=== PATIENT | male | born 1950 | race Native Hawaiian/Other Pacific Islander ===

== ENCOUNTER 2018-06-01 07:04 | Day surgery (SDC) | payer MEDICARE, OTHER ==
[2018-06-01] MEDS ORDERED: LACTATED RINGERS 1,000 ML IV ONE (07:34)
[2018-06-01] MEDS ORDERED: LIDO GARGLE 30 ML BOTTLE ONE (09:09)
[2018-06-01] MEDS ORDERED: fentaNYL 100 MCG/2 ML VIAL IVP ONE (09:18)
[2018-06-01] MEDS ORDERED: MIDAZOLAM 2 MG/2 ML VIAL IVP ONE (09:18)
[2018-06-01] MEDS ORDERED: LIDO GARGLE 30 ML BOTTLE PO ONE (09:30)
[2018-06-01 10:11] VITALS: BP 123/82
== END 2018-06-01 07:05 | disposition home or self-care (01) ==
LOC: SDS 07:04
PROVIDERS: ATTEND Surgery
PROC: 0DJ08ZZ Inspection of Upper Intestinal Tract, Via Natural or Artificial Opening Endoscopic (ICD-10-PCS; principal; 2018-06-01 09:15)
DX: R10.13 Epigastric pain (principal); I10 Essential (primary) hypertension
CPT/HCPCS: 43235; A9270; J7120

== ENCOUNTER 2019-01-07 08:37 | Outpatient (CLI) | payer MEDICARE, OTHER | END 2019-01-07 08:38 | disposition short-term general hospital (02) | LOC: EMS 08:37 | PROVIDERS: ATTEND Surgery | DX: R09.89 Other specified symptoms and signs involving the circulatory and respiratory systems (principal) | CPT/HCPCS: A0425; A0429 ==

== ENCOUNTER 2019-02-22 15:26 | Outpatient (CLI) | payer MEDICARE, OTHER | END 2019-02-22 15:27 | disposition home or self-care (01) | LOC: LC 15:26 | PROVIDERS: ATTEND Internal Medicine Cardiovascular Disease | DX: Z53.9 Procedure and treatment not carried out, unspecified reason (principal) | CPT/HCPCS: 36415; 71046; 80053; 83690; 83880; 84484; 85025; 85610; 85730; 93005 ==

== ENCOUNTER 2019-02-22 15:40 | Emergency (ER) | payer MEDICARE, OTHER ==
--- NOTE | 2019-02-22 15:53 | ED Physician Documentation ---
History of Present Illness - Stated complaint Stated Complaint: CP - History obtained from History obtained from: Patient - History of Present Illness Timing: Prior to arrival - Additonal information Additional information: Patient is a 68-year-old male with a history of hypertension who suffered from a STEMI in December 2017 and subsequently received multiple coronary stents presenting from cardiac rehab center with concern for elevated heart rate. Patient started cardiac rehab last week and has been going 3 times weekly. Cardiac rehab nurse at bedside and able to report that he is to only elevate his heart rate to the 120s, but today, he was pushed further and elevated his heart rate much higher than that and there was a concern for possible SVT and EKG changes. Patient himself denies any complaints and remains asymptomatic. No chest pain, GERD- like discomfort, shortness of breath, pleuritic chest pain, productive cough, fever, abdominal pain, urinary changes, stool changes, leg swelling or pain, lightheadedness, dizziness, syncope. Patient's STEMI was initially felt as GERD-like symptoms to him. Patient received all cardiac work-up at [facility].Patient is anticoagulated with Plavix and aspirin and compliant with all medications. No other improving or worsening factors noted. Review of Systems Constitutional: denies: Fever Cardiac: denies: Chest pain / pressure, Pedal edema, Calf pain Respiratory: denies: Dyspnea, Cough GI: denies: Abdominal Pain, Nausea, Vomiting, Diarrhea : denies: Dysuria Neurologic: denies: Generalized weakness, Focal weakness PD PAST MEDICAL HISTORY - Past Medical History Cardiovascular: Hypertension Respiratory: None Endocrine/Autoimmune: None GI: None : None Psych: None Musculoskeletal: None Derm: Other - Past Surgical History General: Colonoscopy, Other Cardiovascular: Coronary stent - Present Medications Home Medications: Ambulatory Orders Medication Instructions Recorded Confirmed Omeprazole 1 DAILY 06/01/18 - Allergies Allergies/Adverse Reactions: Allergies Allergy/AdvReac Type Severity Reaction Status Date / Time No Known Drug Allergies Allergy Verified 02/22/19 16:02 PD ED PE NORMAL - Vitals Vital signs reviewed: Yes - General General: Alert and oriented X 3, No acute distress, Well developed/nourished - HEENT HEENT: Atraumatic, Moist mucous membranes - Neck Neck: Supple, no meningeal sign - Cardiac Cardiac: RRR, No murmur - Respiratory Respiratory: No respiratory distress, Clear bilaterally - Abdomen Abdomen: Soft, Non tender, Non distended - Derm Derm: Normal color, Warm and dry, No rash - Extremities Extremities: No deformity, No tenderness to palpate, No edema - Neuro Neuro: Alert and oriented X 3, No motor deficit, No sensory deficit - Psych Psych: Normal mood, Normal affect Results - Vitals Vitals: Vital Signs - 24 hr 02/22/19 15:50 Temperature 36.9 C Heart Rate 69 Respiratory 23 Rate Blood Pressure 145/89 H O2 Saturation 100 Oxygen O2 Source Room air - EKG (time done) 1546 Rate: Rate (enter#) (67) Rhythm: NSR Ischemia: Non specific changes - Labs Labs: Laboratory Tests 02/22/19 02/22/19 02/22/19 16:20 16:20 16:20 WBC 4.2 L RBC 4.31 L Hgb 13.7 L Hct 41.3 L MCV 95.8 H MCH 31.8 H MCHC 33.2 RDW 12.7 Plt Count 221 MPV 9.2 Neut # (Auto) 2.1 Lymph # (Auto) 1.4 L [place] # (Auto) 0.6 Eos # (Auto) 0.1 Baso # (Auto) 0.0 Absolute Nucleated RBC 0.00 Nucleated RBC % 0.0 PT 12.1 INR 1.1 APTT 33.1 Sodium 138 Potassium 4.4 Chloride 102 Carbon Dioxide 24 Anion Gap 12.0 BUN 21 H Creatinine 1.0 Estimated GFR (MDRD) 75 L Glucose 84 Calcium 9.4 Total Bilirubin 0.8 AST 23 ALT 16 Alkaline Phosphatase 37 L Troponin I High Sens B-Natriuretic Peptide Total Protein 7.8 Albumin 4.6 Globulin 3.2 Albumin/Globulin Ratio 1.4 Lipase 46 02/22/19 02/22/19 16:20 16:20 WBC RBC Hgb Hct MCV MCH MCHC RDW Plt Count MPV Neut # (Auto) Lymph # (Auto) [place] # (Auto) Eos # (Auto) Baso # (Auto) Absolute Nucleated RBC Nucleated RBC % PT INR APTT Sodium Potassium Chloride Carbon Dioxide Anion Gap BUN Creatinine Estimated GFR (MDRD) Glucose Calcium Total Bilirubin AST ALT Alkaline Phosphatase Troponin I High Sens 8.2 B-Natriuretic Peptide 150 H Total Protein Albumin Globulin Albumin/Globulin Ratio Lipase PD MEDICAL DECISION MAKING - ED course Complexity details: reviewed old records, reviewed results, re-evaluated patient, considered differential, d/w patient, d/w software sales consultant ED course: Patient presenting from cardiac rehab with concerns by cardiac nursing for elevated heart rate possible EKG changes. Patient himself remains asymptomatic and without complaint. Patient received aspirin in ED, but did not require other medications. Chest x-ray, EKG, and screening lab work including troponin all returned relatively unremarkable. Again, patient remained a symptomatic. Spoke with cardiology at [facility] who plans to contact patient tomorrow but otherwise feels that he is safe to discharge home. Advised patient of results and recommendations, strict return precautions, appropriate follow-up. Patient voiced understanding and is comfortable with discharge plan. Departure - Departure Disposition: 01 Home, Self Care Clinical Impression: Arrhythmia Follow-Up: Cesar Morel MD [Primary Care Provider] - Within 3 Days Comments: Please continue all home medications as previously instructed. Cardiology will contact you tomorrow for follow-up. Also recommend close follow-up with your primary care physician in next 2 to 3 days and return to ED sooner if experience chest pain, difficulty breathing, palpitations, lightheadedness, passing out, acid reflux-like symptoms or other concerns.
[2019-02-22] MEDS ORDERED: ASPIRIN CHEW 81 MG TABLET PO STA (16:01)
--- NOTE | 2019-02-22 16:34 | XRAY Report ---
Reason: cough Procedure Date: 02/22/2019 Accession Number: [id number] / [id number] Procedure: XR - Chest 2 View X-Ray CPT Code: 56031 FULL RESULT: EXAM: CHEST RADIOGRAPHY EXAM DATE: 02/22/2019 04:15 PM. CLINICAL HISTORY: Cough. COMPARISON: None. TECHNIQUE: 2 views. FINDINGS: Lungs/Pleura: No focal opacities evident. No pleural effusion. No pneumothorax. Normal volumes. Mediastinum: Heart and mediastinal contours are unremarkable. Other: None. IMPRESSION: No focal consolidation. RADIA
[2019-02-22 16:38] LABS: EOSINOPHILS # (AUTO) 0.1 10^3/uL (0.0-0.7); EOSINOPHILS % (AUTO) 2.4 %; HGB - HEMOGLOBIN 13.7 g/dL (14.0-18.0); LYMPHOCYTES # (AUTO) 1.4 10^3/uL (1.5-3.5); LYMPHOCYTES % (AUTO) 32.9 %; MEAN CORPUSCULAR HEMOGLOBIN 31.8 pg (27.0-31.0); MEAN CORPUSCULAR HGB CONC 33.2 g/dL (32.0-36.0); MEAN CORPUSCULAR VOLUME 95.8 fL (80.0-94.0); MEAN PLATELET VOLUME 9.2 fL (7.4-11.4); MONOCYTES # (AUTO) 0.6 10^3/uL (0.0-1.0); MONOCYTES % (AUTO) 13.5 %; NEUTROPHILS # (AUTO) 2.1 10^3/uL (1.5-6.6); PLT - PLATELET COUNT 221 10^3/uL (130-450); RED BLOOD COUNT 4.31 10^6/uL (4.70-6.10); RED CELL DISTRIBUTION WIDTH 12.7 % (12.0-15.0); WHITE BLOOD COUNT 4.2 x10^3/uL (4.8-10.8)
[2019-02-22 16:50] LABS: INR 1.1 (0.8-1.2); PT - PROTHROMBIN TIME 12.1 secs (9.9-12.6)
[2019-02-22 16:51] LABS: ALBUMIN 4.6 g/dL (3.2-5.5); ALBUMIN/GLOBULIN RATIO 1.4 (1.0-2.2); BILIRUBIN,TOTAL 0.8 mg/dL (0.2-1.0); CALCIUM 9.4 mg/dL (8.5-10.3); TOTAL PROTEIN 7.8 g/dL (6.7-8.2)
[2019-02-22 16:57] LABS: PARTIAL THROMBOPLASTIN TIME 33.1 secs (24.9-33.3)
[2019-02-22 17:52] VITALS: BP 142/84
== END 2019-02-22 17:50 | disposition home or self-care (01) ==
LOC: ED 15:40
DX: I49.9 Cardiac arrhythmia, unspecified (principal); I10 Essential (primary) hypertension; I25.2 Old myocardial infarction; Z95.5 Presence of coronary angioplasty implant and graft; Z79.02 Long term (current) use of antithrombotics/antiplatelets; Z79.82 Long term (current) use of aspirin
CPT/HCPCS: 36415; 71046; 80053; 83690; 83880; 84484; 85025; 85610; 85730; 93005; 99283; 99284

== ENCOUNTER 2020-07-27 08:53 | Emergency (ER) | payer MEDICARE, OTHER ==
[2020-07-27] MEDS ORDERED: TETANUS/DIPHTHERIA/PERTUSSIS 0.5 ML SYRINGE IM ONE (09:14)
--- NOTE | 2020-07-27 09:32 | ED Physician Documentation ---
History of Present Illness - Stated complaint Stated Complaint: LAC ON FACE - Chief complaint Chief Complaint: General - History obtained from History obtained from: Patient - History of Present Illness Timing: Today Pain level max: 6 Pain level now: 5 - Additonal information Additional information: 70-year-old male presents to the emergency department stating that he was out for a jog this morning when he tripped fell and landed on his face. Complains of head and neck pain. Nothing makes it better or worse. He is on Plavix. No loss of consciousness. No vomiting. Complains of mild headache. Has abrasions to the face. Unknown last tetanus. Review of Systems Ten Systems: 10 systems reviewed and negative Constitutional: denies: Fever, Chills GI: denies: Nausea, Vomiting, Diarrhea Skin: denies: Rash Musculoskeletal: reports: Neck pain. denies: Back pain Neurologic: reports: Headache. denies: Focal weakness, Numbness, Seizure, Co nfused, LOC PD PAST MEDICAL HISTORY - Past Medical History Cardiovascular: Hypertension Respiratory: None Endocrine/Autoimmune: None GI: None : None Psych: None Musculoskeletal: None Derm: Other - Past Surgical History General: Colonoscopy, Other Cardiovascular: Coronary stent - Present Medications Home Medications: Ambulatory Orders Medication Instructions Recorded Confirmed Omeprazole 1 tab PO DAILY 06/01/18 07/27/20 Aspirin Chewable [[place] 1 tab PO DAILY 07/27/20 07/27/20 Aspirin] Clopidogrel [Plavix] 1 tab PO DAILY 07/27/20 07/27/20 Metoprolol Succinate [Toprol Xl] 1 tab PO DAILY 07/27/20 07/27/20 lisinopriL [Zestril] 1 tab PO DAILY 07/27/20 07/27/20 - Allergies Allergies/Adverse Reactions: Allergies Allergy/AdvReac Type Severity Reaction Status Date / Time No Known Drug Allergies Allergy Verified 02/22/19 16:02 - Social History Does the pt smoke?: No Smoking Status: Never smoker Does the pt drink ETOH?: No Does the pt have substance abuse?: No - Immunizations Immunizations are current?: Yes PD ED PE NORMAL - Vitals Vital signs reviewed: Yes - General General: Alert and oriented X 3, No acute distress, Well developed/nourished - HEENT HEENT: PERRL, EOMI (No bony tenderness over the face.), Moist mucous membranes, Other (Abrasions to the face. No lacerations to so. Large abrasion to the upper lip. Not a through and through laceration. Normal intraoral exam.). No: Atraumatic (Hematoma to the forehead.) - Neck Neck: Supple, no meningeal sign, Other (Mild upper C-spine tenderness to palpation. No step-off or deformity.) - Cardiac Cardiac: RRR, Strong equal pulses - Respiratory Respiratory: No respiratory distress, Clear bilaterally - Abdomen Abdomen: Soft, Non tender, Non distended - Derm Derm: Warm and dry - Extremities Extremities: No deformity, No tenderness to palpate, Normal ROM s pain - Neuro Neuro: Alert and oriented X 3, primary special educator 2-12 intact, No motor deficit, No sensory deficit, Normal speech Eye Opening: Spontaneous Motor: Obeys Commands Verbal: Oriented GCS Score: 15 - Psych Psych: Normal mood, Normal affect Results - Vitals Vitals: Vital Signs - 24 hr 07/27/20 07/27/20 07/27/20 08:57 10:08 11:30 Temperature 36.7 C Heart Rate 50 L 47 L 56 L Respiratory 18 18 16 Rate Blood Pressure 151/75 H 140/79 H 149/80 H O2 Saturation 100 99 99 07/27/20 07/27/20 07/27/20 12:00 14:07 14:55 Temperature Heart Rate 56 L 60 59 L Respiratory 18 16 16 Rate Blood Pressure 155/90 H 143/79 H 137/80 H O2 Saturation 98 99 99 Oxygen O2 Source Room air - EKG (time done) 1045 Rate: Rate (enter#) (51) Rhythm: NSR [place]: Normal Intervals: Normal NE QRS: Normal Ischemia: Normal ST segments, Q waves (v2-3) - Labs Labs: Laboratory Tests 07/27/20 07/27/20 07/27/20 09:37 09:42 09:42 WBC 7.6 RBC 4.61 L Hgb 14.9 Hct 44.8 MCV 97.2 H MCH 32.3 H MCHC 33.3 RDW 13.2 Plt Count 244 MPV 9.4 Neut # (Auto) 6.3 Lymph # (Auto) 0.7 L [place] # (Auto) 0.5 Eos # (Auto) 0.0 Baso # (Auto) 0.1 Absolute Nucleated RBC 0.00 Nucleated RBC % 0.0 PT 12.7 H INR 1.1 APTT 27.0 Sodium Potassium Chloride Carbon Dioxide Anion Gap BUN Creatinine Estimated GFR (MDRD) Glucose Calcium Total Bilirubin AST ALT Alkaline Phosphatase Total Protein Albumin Globulin Albumin/Globulin Ratio Nasal Adenovirus (PCR) NOT DETECTED Nasal B. parapertussis DNA (PCR) NOT DETECTED Nasal Coronavir 229E PCR NOT DETECTED Nasal Coronavir HKU1 PCR NOT DETECTED Nasal Coronavir NL63 PCR NOT DETECTED Nasal Coronavir OC43 PCR NOT DETECTED Nasal Enterovir/Rhinovir PCR NOT DETECTED Nasal Influenza B PCR NOT DETECTED Nasal Influenza A PCR NOT DETECTED Nasal Parainfluen 1 PCR NOT DETECTED Nasal Parainfluen 2 PCR NOT DETECTED Nasal Parainfluen 3 PCR NOT DETECTED Nasal Parainfluen 4 PCR NOT DETECTED Nasal RSV (PCR) NOT DETECTED Nasal B.pertussis DNA PCR NOT DETECTED Nasal C.pneumoniae (PCR) NOT DETECTED Sukhdeep Human Metapneumo PCR NOT DETECTED Nasal M.pneumoniae (PCR) NOT DETECTED Nasal SARS-CoV-2 (PCR) NOT DETECTED 07/27/20 09:42 WBC RBC Hgb Hct MCV MCH MCHC RDW Plt Count MPV Neut # (Auto) Lymph # (Auto) [place] # (Auto) Eos # (Auto) Baso # (Auto) Absolute Nucleated RBC Nucleated RBC % PT INR APTT Sodium 139 Potassium 4.1 Chloride 103 Carbon Dioxide 25 Anion Gap 11.0 BUN 23 H Creatinine 1.1 Estimated GFR (MDRD) 66 L Glucose 92 Calcium 9.4 Total Bilirubin 1.2 H AST 34 ALT 22 Alkaline Phosphatase 53 Total Protein 7.4 Albumin 4.3 Globulin 3.1 Albumin/Globulin Ratio 1.4 Nasal Adenovirus (PCR) Nasal B. parapertussis DNA (PCR) Nasal Coronavir 229E PCR Nasal Coronavir HKU1 PCR Nasal Coronavir NL63 PCR Nasal Coronavir OC43 PCR Nasal Enterovir/Rhinovir PCR Nasal Influenza B PCR Nasal Influenza A PCR Nasal Parainfluen 1 PCR Nasal Parainfluen 2 PCR Nasal Parainfluen 3 PCR Nasal Parainfluen 4 PCR Nasal RSV (PCR) Nasal B.pertussis DNA PCR Nasal C.pneumoniae (PCR) Sukhdeep Human Metapneumo PCR Nasal M.pneumoniae (PCR) Nasal SARS-CoV-2 (PCR) - Rads (name of study) head ct Radiology: Prelim report reviewed, EMP read contemporaneously, See rad report c-spine ct Radiology: Prelim report reviewed, EMP read contemporaneously, See rad report repeat head Ct Radiology: Prelim report reviewed, EMP read contemporaneously, See rad report PD MEDICAL DECISION MAKING - ED course Complexity details: reviewed results, re-evaluated patient, considered differential, d/w patient ED course: contacted [facility] at 0935 for transfer. Awaiting bed. [facility] has no beds. Recontacted [place] at 1030 and 1230, 1330, 1430, 1530, and 1630. Finally able to speak with neurosurgery, Dr. Ruff, who has no recommendations other than platelets at this time. Platelets not available here. Still awaiting a bed. Also contacted [facility], [facility] in [place]. No beds available anywhere. Patient does have a moderate headache, but remains GCS 15. C-collar removed. 1645 Recontacted [facility] and will look for bed. 1650 [facility], now has one bed available, Dr. Batista ([facility] surgery) recommends transfer to ED. D/w Dr. Chung (ED MD) COBRA forms completed. This document was made in part using voice recognition software. While efforts are made to proofread this document, sound alike and grammatical errors may occur. Head CT 1. Acute left-sided subdural hematoma along the left frontal lobe convexity extending along left side of falx cerebri and over left tentorium measures up to 1.1 cm in thickness. No significant midline shift. No acute intraparenchymal hemorrhage. 2. No gross acute skull fracture. Cervical Spine CT: 1. No acute cervical spine fracture or dislocation. 2. Mild degenerative disc disease in mid to lower cervical spine. Head CT Interval worsening of acute left-sided subdural hematoma along the left cerebral convexity, left falx, and left tentorial leaflet. Slightly worsened mass effect upon the left lateral ventricle. New approximately 3-4 mm [id number] midline shift at the level of the septum pellucidum. Departure - Departure Disposition: 02 Transfer Acute Care Hosp Clinical Impression: Subdural hemorrhage Facial abrasion Qualifiers: Encounter type: initial encounter Qualified Code(s): S00.81XA - Abrasion of other part of head, initial encounter Condition: Stable
[2020-07-27 09:48] LABS: BASOPHILS # (AUTO) 0.1 10^3/uL (0.0-0.1); BASOPHILS % (AUTO) 0.7 %; EOSINOPHILS % (AUTO) 0.3 %; HGB - HEMOGLOBIN 14.9 g/dL (14.0-18.0); LYMPHOCYTES # (AUTO) 0.7 10^3/uL (1.5-3.5); LYMPHOCYTES % (AUTO) 9.5 %; MEAN CORPUSCULAR HEMOGLOBIN 32.3 pg (27.0-31.0); MEAN CORPUSCULAR HGB CONC 33.3 g/dL (32.0-36.0); MEAN CORPUSCULAR VOLUME 97.2 fL (80.0-94.0); MEAN PLATELET VOLUME 9.4 fL (7.4-11.4); MONOCYTES # (AUTO) 0.5 10^3/uL (0.0-1.0); MONOCYTES % (AUTO) 6.7 %; NEUTROPHILS # (AUTO) 6.3 10^3/uL (1.5-6.6); NEUTROPHILS % (AUTO) 82.7 %; PLT - PLATELET COUNT 244 10^3/uL (130-450); RED BLOOD COUNT 4.61 10^6/uL (4.70-6.10); RED CELL DISTRIBUTION WIDTH 13.2 % (12.0-15.0); WHITE BLOOD COUNT 7.6 x10^3/uL (4.8-10.8)
--- NOTE | 2020-07-27 09:52 | CT Report ---
PROCEDURE: CERVICAL SPINE WO INDICATIONS: fall, neck pain TECHNIQUE: Noncontrast 3 mm thick sections acquired from the skull base to the T4 level. Sagittal and coronal r eformats were then constructed. For radiation dose reduction, the following was used: automated exp osure control, adjustment of mA and/or kV according to patient size. COMPARISON: None. FINDINGS: Image quality: Excellent. Bones: No fractures or dislocations. There is straightening of normal cervical lordosis. Degenerativ e endplate changes and decreased intervertebral disc space are noted at C4-5 through C6-7 levels. No significant disc bulge, canal stenosis or neural foraminal narrowing. Visualized superior ribs are in tact. Soft tissues: Prevertebral soft tissues are normal in thickness. No paravertebral hematomas. No ap ical pneumothoraces. IMPRESSION: 1. No acute cervical spine fracture or dislocation. 2. Mild degenerative disc disease in mid to lower cervical spine. Reviewed by: Myron Magallanes MD on 07/27/2020 9:50 AM PST Approved by: Myron Magallanes MD on 07/27/2020 9:50 AM PST Station ID: [id number]
[2020-07-27 09:55] LABS: INR 1.1 (0.8-1.2); PT - PROTHROMBIN TIME 12.7 secs (9.9-12.6)
--- NOTE | 2020-07-27 09:57 | CT Report ---
PROCEDURE: HEAD WO INDICATIONS: fall, head injury pt on plavix TECHNIQUE: Noncontrast 4.5 mm thick angled axial sections acquired from the foramen magnum to the vertex. For r adiation dose reduction, the following was used: automated exposure control, adjustment of mA and/or kV according to patient size. COMPARISON: None. FINDINGS: Image quality: Excellent. CSF spaces: Basal cisterns are patent. Acute subdural hematoma is noted along the left frontal conve xity extending along falx cerebri and left tentorium measures up to 1.1 cm in thickness. Ventricles a re normal in size and shape. Brain: No significant midline shift. No intraparenchymal hemorrhage is noted. Berkowitz-white matter inte rface is normal. Skull and face: Calvarium and visualized facial bones are intact, without suspicious lesions. Sinuses: Visualized sinuses and mastoids are clear. IMPRESSION: 1. Acute left-sided subdural hematoma along the left frontal lobe convexity extending along left side of falx cerebri and over left tentorium measures up to 1.1 cm in thickness. No significant midline s hift. No acute intraparenchymal hemorrhage. 2. No gross acute skull fracture. Findings were reported to Dr. Ogden in the ER at 9:55 AM on 07/27/2020. Reviewed by: Myron Magallanes MD on 07/27/2020 9:56 AM PST Approved by: Myron Magallanes MD on 07/27/2020 9:56 AM PST Station ID: [id number]
[2020-07-27 10:03] LABS: ALBUMIN 4.3 g/dL (3.2-5.5); ALBUMIN/GLOBULIN RATIO 1.4 (1.0-2.2); BILIRUBIN,TOTAL 1.2 mg/dL (0.2-1.0); CALCIUM 9.4 mg/dL (8.5-10.3); CREATININE 1.1 mg/dL (0.6-1.2); TOTAL PROTEIN 7.4 g/dL (6.7-8.2)
[2020-07-27 11:09] LABS: C. PNEUMONIAE- RESP PCR PANEL NOT DETECTED
[2020-07-27] MEDS ORDERED: ACETAMINOPHEN 325 MG TABLET PO STA (12:56)
[2020-07-27] MEDS ORDERED: PROMETHAZINE INJ 12.5 MG in SODIUM CHLORIDE 0.9% 50 ML IV STA (15:46)
[2020-07-27] MEDS ORDERED: PROMETHAZINE 25 MG/1 ML VIAL ONE (16:01)
[2020-07-27] MEDS ORDERED: levETIRAcetam INJ 1,000 MG in SODIUM CHLORIDE 0.9% 100ML 100 ML IV STA (16:19)
--- NOTE | 2020-07-27 16:22 | CT Report ---
PROCEDURE: HEAD WO INDICATIONS: Subdural hemorrhage, nausea TECHNIQUE: Noncontrast 4.5 mm thick angled axial sections acquired from the foramen magnum to the vertex. For r adiation dose reduction, the following was used: automated exposure control, adjustment of mA and/or kV according to patient size. COMPARISON: 07/27/[address] FINDINGS: Previously seen intracranial subdural hemorrhage has worsened. The left parafalcine component of the subdural hemorrhage has increased in overall size. The hemorrhage layering along the left 24 year tanesha flet has also increased in size. The density of the hemorrhage has increased although there are areas of low attenuation which may represent recent rebleeding. The degree of left lateral ventricular eff acement has worsened although the left lateral ventricle remains patent without evidence of entrapmen t. There is new left or right midline shift at the level of the septum pellucidum measuring approxima tely 3-4 mm. The third ventricle, fourth ventricle, and basilar cisterns are not significantly efface d. No acute orbital abnormality. Osseous structures unremarkable. IMPRESSION: Interval worsening of acute left-sided subdural hematoma along the left cerebral convexity, left falx , and left tentorial leaflet. Slightly worsened mass effect upon the left lateral ventricle. New appr oximately 3-4 mm vqwu-[id number] midline shift at the level of the septum pellucidum. Reviewed by: Franco Campos MD on 07/27/2020 4:21 PM PST Approved by: Franco Campos MD on 07/27/2020 4:21 PM PST Station ID: [id number]
[2020-07-27] MEDS: MANNITOL 20% 500 ML IV ONE ×2 (16:47→17:03)
[2020-07-27 17:16] VITALS: BP 129/75
== END 2020-07-27 17:15 | disposition short-term general hospital (02) ==
LOC: ED 08:53
DX: S06.5X0A Traumatic subdural hemorrhage without loss of consciousness, initial encounter (principal); S00.81XA Abrasion of other part of head, initial encounter; S00.511A Abrasion of lip, initial encounter; S00.83XA Contusion of other part of head, initial encounter; W01.0XXA Fall on same level from slipping, tripping and stumbling without subsequent striking against object, initial encounter; Y93.02 Activity, running; Y92.480 Sidewalk as the place of occurrence of the external cause; Z23 Encounter for immunization; M50.321 Other cervical disc degeneration at C4-C5 level; I10 Essential (primary) hypertension; Z79.02 Long term (current) use of antithrombotics/antiplatelets; Z79.82 Long term (current) use of aspirin; Z20.822 Contact with and (suspected) exposure to COVID-19
CPT/HCPCS: 36415; 70450; 72125; 80053; 85025; 85610; 85730; 87631; 90471; 90715; 93005; 96365; 96368; 99285; A9270; J7040; 0202U

== ENCOUNTER 2020-08-03 13:20 | Emergency (ER) | payer MEDICARE, OTHER ==
[2020-08-03 15:41] LABS: BASOPHILS % (AUTO) 0.5 %; EOSINOPHILS # (AUTO) 0.2 10^3/uL (0.0-0.7); EOSINOPHILS % (AUTO) 2.7 %; HGB - HEMOGLOBIN 11.2 g/dL (14.0-18.0); LYMPHOCYTES # (AUTO) 1.4 10^3/uL (1.5-3.5); LYMPHOCYTES % (AUTO) 24.5 %; MEAN CORPUSCULAR HEMOGLOBIN 32.3 pg (27.0-31.0); MEAN CORPUSCULAR HGB CONC 33.2 g/dL (32.0-36.0); MEAN CORPUSCULAR VOLUME 97.1 fL (80.0-94.0); MEAN PLATELET VOLUME 10.9 fL (7.4-11.4); MONOCYTES # (AUTO) 0.5 10^3/uL (0.0-1.0); MONOCYTES % (AUTO) 9.8 %; NEUTROPHILS # (AUTO) 3.4 10^3/uL (1.5-6.6); NEUTROPHILS % (AUTO) 62.3 %; PLT - PLATELET COUNT 244 10^3/uL (130-450); RED BLOOD COUNT 3.47 10^6/uL (4.70-6.10); RED CELL DISTRIBUTION WIDTH 13.2 % (12.0-15.0); WHITE BLOOD COUNT 5.5 x10^3/uL (4.8-10.8)
--- NOTE | 2020-08-03 15:41 | XRAY Report ---
PROCEDURE: Chest 1 View X-Ray INDICATIONS: chest pain TECHNIQUE: One view of the chest was acquired. COMPARISON: Lung apices on CT cervical spine 07/27/2020. CXR 02/22/2019. FINDINGS: Surgical changes and devices: None. Lungs and pleura: Moderate right pleural effusion. Question of trace blunting of the left costophreni c angle. No pneumothorax. Mild airspace opacity at the right lung base. Mediastinum: Mediastinal contours appear normal. Heart size is normal. Bones and chest wall: No suspicious bony lesions. Overlying soft tissues appear unremarkable. IMPRESSION: Moderate right pleural effusion. Mild right lower lobe airspace opacity. This could represent compressive atelectasis or pneumonia. Le ss likely aspiration. Reviewed by: Andrews Bennett MD on 08/03/2020 3:40 PM [facility] Approved by: Andrews Bennett MD on 08/03/2020 3:40 PM [facility] Station ID: [id number]
[2020-08-03 16:13] LABS: ALBUMIN 3.4 g/dL (3.2-5.5); ALBUMIN/GLOBULIN RATIO 1.2 (1.0-2.2); BILIRUBIN,TOTAL 0.9 mg/dL (0.2-1.0); CALCIUM 8.3 mg/dL (8.5-10.3); CREATININE 0.9 mg/dL (0.6-1.2); TOTAL PROTEIN 6.3 g/dL (6.7-8.2)
--- NOTE | 2020-08-03 16:21 | CT Report ---
PROCEDURE: HEAD WO INDICATIONS: subdural hematoma TECHNIQUE: Noncontrast 4.5 mm thick angled axial sections acquired from the foramen magnum to the vertex. For r adiation dose reduction, the following was used: automated exposure control, adjustment of mA and/or kV according to patient size. COMPARISON: None. FINDINGS: Image quality: Excellent. CSF spaces: Basal cisterns are patent. No extra-axial fluid collections. Ventricles are normal in size and shape. Brain: Subdural hematoma tracking along the falx, the left eighth of the tentorium and along the left emlgrzmw-hopidwge-wastsdujt convexity has undergone expected evolution interval since 07/27/2020. No new intracranial hemorrhage. Approximately 3-4 mm of vwet-ui-[id number] midline shift is stable compared t o prior examination. Trace left parietal convexity subarachnoid hemorrhage has almost completely reso lved. Berkowitz-white matter interface is normal. Skull and face: Calvarium and visualized facial bones are intact, without suspicious lesions. Sinuses: Visualized sinuses and mastoids are clear. IMPRESSION: 1. Left-sided subdural hematoma not definitely changed compared to 07/27/2020. No new intracranial hem orrhage. 2. Proximal C3-4 millimeters of zlgi-dy-brjme midline shift stable compared to prior CT scan. Reviewed by: Jumana Rivera MD, PhD on 08/03/2020 3:19 PM [place] Approved by: Jumana Rivera MD, PhD on 08/03/2020 3:19 PM [facility] Station ID: [id number]
[2020-08-03 16:24] LABS: BILIRUBIN,URINE NEGATIVE (NEGATIVE); GLUCOSE, URINE (UA) NEGATIVE (NEGATIVE); KETONES,URINE (UA) NEGATIVE (NEGATIVE); LEUKOCYTE ESTERASE, URINE NEGATIVE (NEGATIVE); NITRITE,URINE NEGATIVE (NEGATIVE); OCCULT BLOOD,URINE NEGATIVE (NEGATIVE); PROTEIN,URINE NEGATIVE (NEGATIVE); UROBILINOGEN,URINE 1 (NORMAL) E.U./dL (NORMAL)
[2020-08-03 16:29] LABS: CLARITY,URINE CLEAR (CLEAR)
[2020-08-03 16:30] LABS: BACTERIA,URINE None Seen /HPF (None Seen); EPITHELIAL CELLS,UR None Seen /HPF (<= Few); MUCUS,URINE Few Strands; RBC,URINE None Seen /HPF (0-5); SQUAMOUS EPITHELIAL CELL,UR NONE SEEN (<= Few)
--- NOTE | 2020-08-03 16:30 | ED Physician Documentation ---
History of Present Illness - Stated complaint Stated Complaint: FEVER - Chief complaint Chief Complaint: General - Additonal information Additional information: 70-year-old male presents the emergency department for evaluation of headache and fever. He reports a fever of 101 at home this morning. He denies any cough congestion, chest pain abdominal pain shortness of breath. He was seen in this emergency department 1 week ago after a fall. He was found to have a subdural hematoma. He was ultimately transferred to [facility] for neurosurgery evaluation. Patient reports that he was discharged home 08/01/2020. While in the hospital he was observed but no neurosurgical intervention was completed. He had been feeling well until this a.m. when the headache worsened and he noted the fever. Review of Systems Constitutional: reports: Fever Eyes: reports: Reviewed and negative Ears: reports: Reviewed and negative Nose: reports: Reviewed and negative Throat: reports: Reviewed and negative Cardiac: reports: Reviewed and negative Respiratory: reports: Reviewed and negative GI: reports: Reviewed and negative : reports: Reviewed and negative Skin: reports: Reviewed and negative Musculoskeletal: reports: Reviewed and negative Neurologic: reports: Headache, Head injury. denies: Generalized weakness, Focal weakness, Numbness, Difficulty speaking, Near syncope, Syncope, Seizure, Confused PD PAST MEDICAL HISTORY - Past Medical History Cardiovascular: Hypertension Respiratory: None Endocrine/Autoimmune: None GI: None : None Psych: None Musculoskeletal: None Derm: Other - Past Surgical History Past Surgical History: Yes General: Colonoscopy, Other Cardiovascular: Coronary stent - Present Medications Home Medications: Ambulatory Orders Medication Instructions Recorded Confirmed Metoprolol Succinate [Toprol Xl] 1 tab PO DAILY 07/27/20 08/03/20 lisinopriL [Zestril] 1 tab PO DAILY 07/27/20 08/03/20 Acetaminophen [Tylenol] 975 mg PO Q6H PRN 08/03/20 08/03/20 Atorvastatin Calcium 40 mg PO DAILY 08/03/20 08/03/20 Levetiracetam [Keppra] 500 mg PO DAILY 08/03/20 08/03/20 Ondansetron Odt [Zofran Odt] 4 mg PO Q8HR 08/03/20 08/03/20 oxyCODONE [Roxicodone] 5 mg PO Q4HR 08/03/20 08/03/20 - Allergies Allergies/Adverse Reactions: Allergies Allergy/AdvReac Type Severity Reaction Status Date / Time No Known Drug Allergies Allergy Verified 08/03/20 13:35 - Social History Does the pt smoke?: No Smoking Status: Never smoker Does the pt drink ETOH?: No Does the pt have substance abuse?: No - Immunizations Immunizations are current?: Yes PD ED PE EXPANDED - General General: Alert, No acute distress, Well developed/nourished - HEENT HEENT: Atraumatic, PERRL - Eyes Eyes: PERRL - Neck Neck: Supple w/out meningeal sx. No: Adenopathy - Cardiac Cardiac: Stewart, Radial strong equal, Pedal strong equal. No: Murmur Present - Respiratory Respiratory: Clear to ausultation sherif. No: Distress, Labored - Abdomen Abdomen: Normal Bowel sounds. No: Tender to palpation - Derm Derm: Normal color. No: Rash - Extremities Extremities: Normal. No: Deformity, Tenderness - Neuro Neuro: Alert and Oriented X 3, CNII-XII intact, Cerebellar nl, Normal gait, Normal finger nose, Normal speech. No: Confused, Disoriented - GCS Eye Opening: Spontaneous Motor: Obeys Commands Verbal: Oriented Total: 15 Results - Vitals Vitals: Vital Signs - 24 hr 08/03/20 08/03/20 08/03/20 13:27 15:37 16:08 Temperature 36.6 C Heart Rate 55 L 57 L 58 L Respiratory 16 20 16 Rate Blood Pressure 118/72 121/69 177/75 H O2 Saturation 100 100 100 08/03/20 17:00 Temperature 37.2 C Heart Rate 52 L Respiratory 18 Rate Blood Pressure 151/89 H O2 Saturation 100 Oxygen O2 Source Room air - Labs Labs: Laboratory Tests 08/03/20 08/03/20 08/03/20 15:00 15:40 15:40 WBC 5.5 RBC 3.47 L Hgb 11.2 L Hct 33.7 L MCV 97.1 H MCH 32.3 H MCHC 33.2 RDW 13.2 Plt Count 244 MPV 10.9 Neut # (Auto) 3.4 Lymph # (Auto) 1.4 L [place] # (Auto) 0.5 Eos # (Auto) 0.2 Baso # (Auto) 0.0 Absolute Nucleated RBC 0.00 Nucleated RBC % 0.0 Sodium Potassium Chloride Carbon Dioxide Anion Gap BUN Creatinine Estimated GFR (MDRD) Glucose Lactic Acid 1.4 Calcium Total Bilirubin AST ALT Alkaline Phosphatase Total Protein Albumin Globulin Albumin/Globulin Ratio Urine Color Urine Clarity Urine pH Ur Specific [place] Urine Protein Urine Glucose (UA) Urine Ketones Urine Occult Blood Urine Nitrite Urine Bilirubin Urine Urobilinogen Ur Leukocyte Esterase Urine RBC Urine WBC Ur Epithelial Cells Ur Squamous Epith Cells Urine Bacteria Urine Mucus Urine Culture Comments Nasal Adenovirus (PCR) NOT DETECTED Nasal B. parapertussis DNA (PCR) NOT DETECTED Nasal Coronavir 229E PCR NOT DETECTED Nasal Coronavir HKU1 PCR NOT DETECTED Nasal Coronavir NL63 PCR NOT DETECTED Nasal Coronavir OC43 PCR NOT DETECTED Nasal Enterovir/Rhinovir PCR NOT DETECTED Nasal Influenza B PCR NOT DETECTED Nasal Influenza A PCR NOT DETECTED Nasal Parainfluen 1 PCR NOT DETECTED Nasal Parainfluen 2 PCR NOT DETECTED Nasal Parainfluen 3 PCR NOT DETECTED Nasal Parainfluen 4 PCR NOT DETECTED Nasal RSV (PCR) NOT DETECTED Nasal B.pertussis DNA PCR NOT DETECTED Nasal C.pneumoniae (PCR) NOT DETECTED Sukhdeep Human Metapneumo PCR NOT DETECTED Nasal M.pneumoniae (PCR) NOT DETECTED Nasal SARS-CoV-2 (PCR) NOT DETECTED 08/03/20 08/03/20 15:53 16:00 WBC RBC Hgb Hct MCV MCH MCHC RDW Plt Count MPV Neut # (Auto) Lymph # (Auto) [place] # (Auto) Eos # (Auto) Baso # (Auto) Absolute Nucleated RBC Nucleated RBC % Sodium 133 L Potassium 3.4 L Chloride 102 Carbon Dioxide 24 Anion Gap 7.0 BUN 22 H Creatinine 0.9 Estimated GFR (MDRD) 84 L Glucose 108 H Lactic Acid Calcium 8.3 L Total Bilirubin 0.9 AST 47 H ALT 31 Alkaline Phosphatase 69 Total Protein 6.3 L Albumin 3.4 Globulin 2.9 Albumin/Globulin Ratio 1.2 Urine Color YELLOW Urine Clarity CLEAR Urine pH 6.0 Ur Specific [place] 1.025 Urine Protein NEGATIVE Urine Glucose (UA) NEGATIVE Urine Ketones NEGATIVE Urine Occult Blood NEGATIVE Urine Nitrite NEGATIVE Urine Bilirubin NEGATIVE Urine Urobilinogen 1 (NORMAL) Ur Leukocyte Esterase NEGATIVE Urine RBC None Seen Urine WBC 0-3 Ur Epithelial Cells None Seen Ur Squamous Epith Cells NONE SEEN Urine Bacteria None Seen Urine Mucus Few Strands Urine Culture Comments NOT INDICATED Nasal Adenovirus (PCR) Nasal B. parapertussis DNA (PCR) Nasal Coronavir 229E PCR Nasal Coronavir HKU1 PCR Nasal Coronavir NL63 PCR Nasal Coronavir OC43 PCR Nasal Enterovir/Rhinovir PCR Nasal Influenza B PCR Nasal Influenza A PCR Nasal Parainfluen 1 PCR Nasal Parainfluen 2 PCR Nasal Parainfluen 3 PCR Nasal Parainfluen 4 PCR Nasal RSV (PCR) Nasal B.pertussis DNA PCR Nasal C.pneumoniae (PCR) Sukhdeep Human Metapneumo PCR Nasal M.pneumoniae (PCR) Nasal SARS-CoV-2 (PCR) - Rads (name of study) CT head Radiology: Final report received (Left-sided subdural hematoma not definitely changed compared to 07/27/2020. No new intracranial hemorrhage. Proximal C3 to 4 mm of [id number] midline shift stable compared to prior CT scan.) Chest xr Radiology: Final report received (Moderate right pleural effusion. Mild right lower lobe airspace space opacity. This could represent compressive atelectasis or pneumonia less likely aspiration) Chest CT Radiology: Final report received (Small right and trace left pleural effusions with atelectasis of the adjacent lung bases. There is also trace upper abdominal ascites. Recommend correlation for cause of volume overload including possible congestive heart failure. Mild cardiomegaly.) PD MEDICAL DECISION MAKING - ED course Complexity details: reviewed results, considered differential, d/w patient, d/w [employer] consultant (Dr. Suni Peters) ED course: 70-year-old male presents to the emergency department for evaluation of fever and mild headache. This gentleman was seen in this ER 1 week ago after a fall and found to have a subdural hematoma. He subsequently transferred to [facility]. While there he underwent neurological evaluation but required no surgery and was discharged home 08/01/2020. Since discharge home he reports that he has had a mild low-grade fevers 99-100. This morning it was 101. He did have a mild headache that resolved with Tylenol. However the fever concerned him so he presents to the emergency department. Here in the emergency department his CBC shows no leukocytosis. Lactic acid is negative. Urine shows no signs of infection. Electrolytes are without worrisome abnormality. COVID-19 screening is negative. We proceeded to do a chest x-ray to look for source of infection and do find that he has a small right-sided pleural effusion. I discussed the pleural effusion with Dr. Bergman our surgeon on-call. He is without hypoxia tachypnea or respiratory distress. This time there is no indication to drain the effusion and she doubts that it is the cause of his fever. A CT of his chest did show mild right and left pleural effusions. His liver function tests are without acute worridomr abnormalities. Though there is a mild amount of ascites on the CT none is palpable on exam. He is not hypoxic or dyspneic. He will be advised to follow-up the pleural effusion with his primary care provider and to obtain outpatient echocardiogram and stress testing We did repeat a CT of his head and found no change to his subdural hematoma. I did discuss with Dr. Harmon neurosurgeon at [facility]. He is quite familiar with his case. He states that some amount of low-grade fever after a subdural can be expected. This patient has no meningeal signs and is quite alert awake and well-appearing. Dr. Harmon would not recommend any additional evaluation or treatment with regard to the subdural hematoma. He is to continue his antiepileptic drugs and continue to follow-up with Dr. Ruff as an outpatient as already scheduled.Did show small right and left trace pleural effusions with atelectasis. . Departure - Departure Clinical Impression: Subdural hematoma, Pleural effusion Fever Qualifiers: Fever type: due to other condition Qualified Code(s): R50.81 - Fever presenting with conditions classified elsewhere Condition: Stable Record reviewed to determine appropriate education?: Yes Instructions: ED Effusion Pleural Follow-Up: Santy Delvalle DO [Primary Care Provider] - Comments: Arnel you were seen in the ER today for fever and headache. The CT of your head did not show any changes to the subdural hematoma. I did discuss with Dr. HARMON the neurosurgeon at [facility] and he feels you need to continue to follow-up with Dr. Ruff and take your antiepileptic drugs. There is no indication for further testing or treatment today with regard to the subdural hematoma. We did do a CT of your chest as well as a chest x-ray and do find that you have a pleural effusion. This is a collection of fluid on the outside of the lung. The cause of this is not certain today. However your primary doctor, Dr. Delvalle, should order outpatient testing which may include an echocardiogram and repeat lab test. If at any point you find that your symptoms are worsening, you have uncontrolled fevers suddenly severe neck pain feel confused or cannot breathe please return immediately to the emergency department
[2020-08-03 17:13] LABS: C. PNEUMONIAE- RESP PCR PANEL NOT DETECTED
[2020-08-03 17:19] VITALS: BP 151/89
--- NOTE | 2020-08-03 17:52 | CT Report ---
PROCEDURE: CHEST WO INDICATIONS: right pleural effusion TECHNIQUE: Noncontrast 5 mm thick sections acquired from the pulmonary apices to the posterior costophrenic angl es. 7 mm thick coronal and sagittal MIP reformats were then acquired. For radiation dose reduction, the following was used: automated exposure control, adjustment of mA and/or kV according to patient size. COMPARISON: Chest radiographs dated 08/03/2020. FINDINGS: Image quality: Excellent. Lungs and pleura: Small right and trace left pleural effusions are seen with atelectasis of the torsten cent portions of the lungs. There is no pneumothorax. No pneumothorax. Central and peripheral airways are patent and normal in caliber. Mediastinum: Heart size is mildly enlarged. No pericardial effusion. Moderate coronary artery athe rosclerotic calcifications are seen. There is moderate aortic atherosclerosis. No mediastinal adenopa thy by size criteria. Thoracic aorta and central pulmonary arteries are normal in size. Esophagus i s normal in caliber. No hiatal hernia. Bones and chest wall: No suspicious bony lesions. No vertebral body compression fractures. No axil frederic or supraclavicular adenopathy by size criteria. The thyroid is normal in size. Abdomen: A mildly exophytic cyst is seen in the superior pole of the left kidney. There is trace upp er abdominal ascites. Visualized upper abdominal solid organs and bowel loops appear otherwise normal in the absence of contrast. IMPRESSION: 1. Small right and trace left pleural effusions with atelectasis of the adjacent lung bases. There i s also trace upper abdominal ascites. Recommend correlation for causes of volume overload including p ossible congestive heart failure. 2. Mild cardiomegaly. Reviewed by: Stef Acuna MD on 08/03/2020 5:51 PM PST Approved by: Stef Acuna MD on 08/03/2020 5:51 PM PST Station ID: [id number]
== END 2020-08-03 18:32 | disposition home or self-care (01) ==
LOC: ED 13:20
DX: S06.5X0A Traumatic subdural hemorrhage without loss of consciousness, initial encounter (principal); W19.XXXA Unspecified fall, initial encounter; J90 Pleural effusion, not elsewhere classified; J98.11 Atelectasis; R50.81 Fever presenting with conditions classified elsewhere; Z20.822 Contact with and (suspected) exposure to COVID-19; I10 Essential (primary) hypertension
CPT/HCPCS: 0202U; 80053; 81001; 83605; 85025; 87040; 87086; 99284

== ENCOUNTER 2020-08-24 09:21 | Outpatient (CLI) | payer MEDICARE, OTHER ==
--- NOTE | 2020-08-24 09:53 | CT Report ---
PROCEDURE: HEAD WO INDICATIONS: SUBDURAL HEMATOMA TECHNIQUE: Noncontrast 4.5 mm thick angled axial sections acquired from the foramen magnum to the vertex. For r adiation dose reduction, the following was used: automated exposure control, adjustment of mA and/or kV according to patient size. COMPARISON: None. FINDINGS: These images demonstrate significant interval decrease in the attenuation of the previously seen subd ural hemorrhage along the left falx, in the left parietotemporal convexity, and along the left tentor ial leaflet. The hematoma has not significant changed in size. The associated mass effect is decrease d from the prior study. Previously seen left to right midline shift has decreased to approximately 2 mm. No additional intracranial hemorrhage. The ventricular system and basilar cisterns are patent. Gr ay-white matter differentiation is maintained. No gross orbital abnormality. Paranasal sinuses and ma stoid air cells are clear. IMPRESSION: Expected interval decrease in the attenuation of the multifocal subdural hemorrhage, without signific ant decrease in size. Associated mass effect is decreased but not entirely resolved. Reviewed by: Franco Campos MD on 08/24/2020 8:52 AM [facility] Approved by: Franco Campos MD on 08/24/2020 8:52 AM [facility] Station ID: [id number]
== END 2020-08-24 09:22 | disposition home or self-care (01) ==
LOC: DI 09:21
PROVIDERS: ATTEND Family Medicine
DX: I62.00 Nontraumatic subdural hemorrhage, unspecified (principal)

== ENCOUNTER 2020-10-25 08:22 | Outpatient (CLI) | payer MEDICARE, OTHER ==
--- NOTE | 2020-10-25 08:58 | CT Report ---
PROCEDURE: HEAD WO INDICATIONS: SUBDURAL HEMATOMA TECHNIQUE: Noncontrast 4.5 mm thick angled axial sections acquired from the foramen magnum to the vertex. For r adiation dose reduction, the following was used: automated exposure control, adjustment of mA and/or kV according to patient size. COMPARISON: None. FINDINGS: Image quality: Diagnostic. CSF spaces: Basal cisterns are patent. No extra-axial fluid collections. Ventricles are normal in size and shape. Left parafalcine subdural hematoma has resolved. Brain: No midline shift. No intracranial masses or hemorrhage. Berkowitz-white matter interface is norm al. Skull and face: Calvarium and visualized facial bones are intact, without suspicious lesions. Sinuses: Visualized sinuses and mastoids are clear. IMPRESSION: 1. Interval resolution of left parafalcine subdural hematoma. 2. Normal appearing brain parenchyma. No evidence of acute stroke, hemorrhage, or mass. Reviewed by: Surinder Scuhltz MD on 10/25/2020 8:57 AM PDT Approved by: Surinder Schultz MD on 10/25/2020 8:57 AM PDT Station ID: [id number]
== END 2020-10-25 08:23 | disposition home or self-care (01) ==
LOC: DI 08:22
PROVIDERS: ATTEND Neurological Surgery
DX: S06.5X9A Traumatic subdural hemorrhage with loss of consciousness of unspecified duration, initial encounter (principal)

== ENCOUNTER 2021-02-28 07:39 | Outpatient (CLI) | payer MEDICARE, OTHER ==
--- NOTE | 2021-02-28 12:23 | MRI Report ---
PROCEDURE: Ankle RT W/O INDICATIONS: BILATERAL CALCIFIC TENDINITIS OF ACHILLES TENDONS TECHNIQUE: Noncontrast sagittal T1 spin echo and T2 fast spin echo with fat saturation, axial proton density fas t spin echo and T2 fast spin echo with fat saturation, coronal T1 spin echo and T2 fast spin echo wit h fat saturation through the ankle/hindfoot. COMPARISON: None. FINDINGS: Image quality: Excellent. Bones and joints: Well-defined dorsal calcaneal enthesophytes are seen with mild edema at Achilles te ndon insertion. No discrete fracture line is noted. Mild midfoot and hindfoot joint osteoarthritic ch anges are seen. No hindfoot coalitions. No osteochondral injuries of the talar dome. No pathologic joint effusions. Medial structures: The posterior tibialis, flexor digitorum longus, and flexor hallucis longus tendo ns are intact. The posterior tibial neurovascular bundle appears normal within the tarsal tunnel, wi thout extrinsic mass effect. The deep layer (anterior and posterior tibiotalar ligaments) and superf icial layer (tibionavicular, tibiospring, and tibiocalcaneal ligaments) of the deltoid ligament appea r normal. The spring ligament components (superomedial calcaneonavicular, medioplantar oblique calca neonavicular, and inferoplantar longitudinal ligaments) are intact. Lateral structures: The anterior talofibular, calcaneofibular, and posterior talofibular ligaments a ppear intact. More superiorly, the anterior and posterior tibiofibular ligaments appear normal, as i s the intermalleolar ligament. The tibiofibular syndesmosis is normal in width at 2 mm or less. The peroneus longus and brevis tendons demonstrate normal location and morphology. Adjacent bony perone al tubercle and retrotrochlear prominence are normal in size. The sinus tarsi demonstrates normal fa tty signal, without edema, fibrosis, or cyst formation. Visualized sinus tarsi components (cervical ligament, interosseous talocalcaneal ligament, roots of the inferior extensor retinaculum) appear nor mal. Anterior structures: The tibialis anterior, extensor hallucis longus, and extensor digitorum longus tendons appear intact. Posterior and plantar structures: Tendinosis and low-grade partial-thickness tear involving distal Ac hilles tendon at its posterior calcaneal insertion is seen. No full-thickness Achilles tendon rupture . Medial and lateral bands of the plantar fascia are of normal thickness. No abductor digiti quinti muscle atrophy to suggest Almanza neuropathy. IMPRESSION: 1. Well-defined dorsal calcaneal enthesophyte with tendinosis and low-grade intrasubstance partial th ickness tear involving distal Achilles tendon at its insertion on posterior calcaneus. No full-thickn ess Achilles tendon rupture. 2. Mild midfoot or hindfoot joint osteoarthritis. No fracture or dislocation. No suspicious bony lesi on. 3. Rest of the ankle tendons and ligaments are grossly intact. Reviewed by: Myron Magallanes MD on 02/28/2021 12:22 PM PDT Approved by: Myron Magallanes MD on 02/28/2021 12:22 PM PDT Station ID: [id number]
--- NOTE | 2021-02-28 12:49 | MRI Report ---
PROCEDURE: Ankle LT W/O INDICATIONS: BILATERAL CALCIFIC TENDINITIS OF ACHILLES TENDONS TECHNIQUE: Noncontrast sagittal T1 spin echo and T2 fast spin echo with fat saturation, axial proton density fas t spin echo and T2 fast spin echo with fat saturation, coronal T1 spin echo and T2 fast spin echo wit h fat saturation through the ankle/hindfoot. COMPARISON: None. FINDINGS: Image quality: Excellent. Bones and joints: Dorsal calcaneal enthesophyte is seen with mild edema involving posterior calcaneus at the site of distal Achilles tendon insertion. No other area of abnormal marrow signal. Mild the m idfoot or hindfoot joint osteoarthritic changes are seen. No hindfoot coalitions. No osteochondral i njuries of the talar dome. Small joint effusion is noted in tibiotalar and subtalar joint space witho ut intra-articular loose body. Medial structures: The posterior tibialis, flexor digitorum longus, and flexor hallucis longus tendo ns are intact. The posterior tibial neurovascular bundle appears normal within the tarsal tunnel, wi thout extrinsic mass effect. The deep layer (anterior and posterior tibiotalar ligaments) and superf icial layer (tibionavicular, tibiospring, and tibiocalcaneal ligaments) of the deltoid ligament appea r normal. The spring ligament components (superomedial calcaneonavicular, medioplantar oblique calca neonavicular, and inferoplantar longitudinal ligaments) are intact. Lateral structures: The anterior talofibular, calcaneofibular, and posterior talofibular ligaments a ppear intact. More superiorly, the anterior and posterior tibiofibular ligaments appear normal, as i s the intermalleolar ligament. The tibiofibular syndesmosis is normal in width at 2 mm or less. The peroneus longus and brevis tendons demonstrate normal location and morphology. Adjacent bony perone al tubercle and retrotrochlear prominence are normal in size. The sinus tarsi demonstrates normal fa tty signal, without edema, fibrosis, or cyst formation. Visualized sinus tarsi components (cervical ligament, interosseous talocalcaneal ligament, roots of the inferior extensor retinaculum) appear nor mal. Anterior structures: The tibialis anterior, extensor hallucis longus, and extensor digitorum longus tendons appear intact. Posterior and plantar structures: Thickened distal Achilles tendon at its insertion on posterior calc aneus is seen with intrasubstance T2 hyperintensity no. No full-thickness Achilles tendon rupture. Me dial and lateral bands of the plantar fascia are of normal thickness. No abductor digiti quinti musc le atrophy to suggest Almanza neuropathy. IMPRESSION: 1. Prominent dorsal calcaneal enthesophyte with mild edema and tendinosis and low-grade intrasubstanc e partial thickness tear involving distal Achilles tendon at its posterior calcaneal insertion. No fu ll-thickness Achilles tendon rupture. 2. Mild midfoot and hindfoot joint osteoarthritis. No fracture or dislocation. Small joint effusion. Reviewed by: Myron Magallanes MD on 02/28/2021 12:48 PM PDT Approved by: Myron Magallanes MD on 02/28/2021 12:48 PM PDT Station ID: [id number]
== END 2021-02-28 07:40 | disposition home or self-care (01) ==
LOC: DI 07:39
PROVIDERS: ATTEND Internal Medicine
DX: M77.31 Calcaneal spur, right foot (principal); S86.021A Laceration of right Achilles tendon, initial encounter; M19.071 Primary osteoarthritis, right ankle and foot; M25.472 Effusion, left ankle; M19.072 Primary osteoarthritis, left ankle and foot

== ENCOUNTER 2021-04-05 12:56 | Emergency (ER) | payer MEDICARE, OTHER ==
--- NOTE | 2021-04-05 13:16 | ED Physician Documentation ---
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 Since about 5 AM yesterday morning he has had spinning vertigo with profound nausea and vomiting. It is not positional and does not worsen with rotation of the head. He denies any ear complaints or hearing problems. He has a mild headache with it. He is too unsteady to walk. Review of Systems Ten Systems: 10 systems reviewed and negative Constitutional: denies: Fever, Chills Eyes: reports: Reviewed and negative Ears: reports: Reviewed and negative Nose: reports: Reviewed and negative PD PAST MEDICAL HISTORY - Past Medical History Cardiovascular: Hypertension Respiratory: None Endocrine/Autoimmune: None GI: None : None Psych: None Musculoskeletal: None Derm: Other - Past Surgical History Past Surgical History: Yes General: Colonoscopy, Other Cardiovascular: Coronary stent - Present Medications Home Medications: Ambulatory Orders Medication Instructions Recorded Confirmed Metoprolol Succinate [Toprol Xl] 1 tab PO DAILY 07/27/20 08/03/20 lisinopriL [Zestril] 1 tab PO DAILY 07/27/20 08/03/20 Acetaminophen [Tylenol] 975 mg PO Q6H PRN 08/03/20 08/03/20 Atorvastatin Calcium 40 mg PO DAILY 08/03/20 08/03/20 Levetiracetam [Keppra] 500 mg PO DAILY 08/03/20 08/03/20 Ondansetron Odt [Zofran Odt] 4 mg PO Q8HR 08/03/20 08/03/20 oxyCODONE [Roxicodone] 5 mg PO Q4HR 08/03/20 08/03/20 Meclizine HCl [Motion Sickness] 25 mg PO Q6H PRN #20 tablet 04/05/21 Metoclopramide [Reglan] 10 mg PO Q6H PRN #20 tablet 04/05/21 Ondansetron Odt [Zofran] 4 mg TL Q6H PRN #10 tablet 04/05/21 - Allergies Allergies/Adverse Reactions: Allergies Allergy/AdvReac Type Severity Reaction Status Date / Time No Known Drug Allergies Allergy Verified 08/03/20 13:35 - Social History Does the pt smoke?: No Smoking Status: Never smoker Does the pt drink ETOH?: No Does the pt have substance abuse?: No - Immunizations Immunizations are current?: Yes PD ED PE NORMAL - Vitals Vital signs reviewed: Yes - General General: Alert and oriented X 3, Other (Rotation of the head does not exacerbate his vertigo.) - HEENT HEENT: PERRL, Other (He has torsional nystagmus on leftward gaze and horizontal nystagmus on rightward gaze) - Neck Neck: Supple, no meningeal sign, No bony TTP - Cardiac Cardiac: RRR, No murmur - Respiratory Respiratory: No respiratory distress, Clear bilaterally - Abdomen Abdomen: Normal bowel sounds, Soft, Non tender - Back Back: No CVA TTP - Derm Derm: Normal color, Warm and dry - Neuro Neuro: Alert and oriented X 3, guidance consultant 2-12 intact, No motor deficit, No sensory deficit, Normal speech Eye Opening: Spontaneous Motor: Obeys Commands Verbal: Oriented GCS Score: 15 Results - Vitals Vitals: Vital Signs - 24 hr 04/05/21 04/05/21 13:06 15:06 Temperature 36.8 C 36.6 C Heart Rate 89 71 Respiratory 16 16 Rate Blood Pressure 152/96 H 140/93 H O2 Saturation 99 94 Oxygen O2 Source Room air - Labs Labs: Laboratory Tests 04/05/21 04/05/21 13:23 13:23 WBC 4.6 L RBC 4.85 Hgb 15.4 Hct 45.4 MCV 93.6 MCH 31.8 H MCHC 33.9 RDW 13.2 Plt Count 242 MPV 9.2 Neut # (Auto) 3.4 Lymph # (Auto) 0.9 L Dickens # (Auto) 0.3 Eos # (Auto) 0.0 Baso # (Auto) 0.0 Absolute Nucleated RBC 0.00 Nucleated RBC % 0.0 Sodium 142 Potassium 3.7 Chloride 104 Carbon Dioxide 24 Anion Gap 14.0 H BUN 24 H Creatinine 0.9 Estimated GFR (MDRD) 84 L Glucose 90 Calcium 9.4 - Rads (name of study) MRI brain Radiology: EMP read contemporaneously PD MEDICAL DECISION MAKING - ED course ED course: 70-year-old gentleman presents with persistent vertigo lasting for about 36 hours now. My suspicion was highest for brainstem CVA given his risk factors, and as such MRI of the brain was done without evidence of acute finding or CVA. He did not have much relief here with meclizine, but had significantly more relief with Reglan, this leads me to the conclusion that this is likely vestibular migraine as opposed to BPPV since it is not fleeting and Spike-Hallpike was negative. Edmund was trialed but ineffective. Departure - Departure Disposition: Home, Self Care Clinical Impression: Vertigo Condition: Good Record reviewed to determine appropriate education?: Yes Instructions: ED Vertigo Unspecified Prescriptions: Meclizine HCl [Motion Sickness] 25 mg PO Q6H PRN #20 tablet PRN Reason: Dizziness Metoclopramide [Reglan] 10 mg PO Q6H PRN #20 tablet PRN Reason: nausea or headache Ondansetron Odt [Zofran] 4 mg TL Q6H PRN #10 tablet PRN Reason: Nausea / Vomiting Comments: As discussed, thankfully your MRI was negative for stroke. I suspect that the cause of your vertigo is likely vestibular migraine, and thankfully Reglan was fairly effective for you. I am prescribing both Reglan and meclizine which is another medication for dizziness as well as something for the nausea. Please return if worsening and follow-up with your doctor next week regardless.
[2021-04-05 13:44] LABS: BASOPHILS % (AUTO) 0.9 %; EOSINOPHILS % (AUTO) 0.2 %; HCT - HEMATOCRIT 45.4 % (42.0-52.0); HGB - HEMOGLOBIN 15.4 g/dL (14.0-18.0); LYMPHOCYTES # (AUTO) 0.9 10^3/uL (1.5-3.5); LYMPHOCYTES % (AUTO) 19.5 %; MEAN CORPUSCULAR HEMOGLOBIN 31.8 pg (27.0-31.0); MEAN CORPUSCULAR HGB CONC 33.9 g/dL (32.0-36.0); MEAN CORPUSCULAR VOLUME 93.6 fL (80.0-94.0); MEAN PLATELET VOLUME 9.2 fL (7.4-11.4); MONOCYTES # (AUTO) 0.3 10^3/uL (0.0-1.0); MONOCYTES % (AUTO) 6.7 %; NEUTROPHILS # (AUTO) 3.4 10^3/uL (1.5-6.6); NEUTROPHILS % (AUTO) 72.5 %; PLT - PLATELET COUNT 242 10^3/uL (130-450); RED BLOOD COUNT 4.85 10^6/uL (4.70-6.10); RED CELL DISTRIBUTION WIDTH 13.2 % (12.0-15.0); WHITE BLOOD COUNT 4.6 x10^3/uL (4.8-10.8)
[2021-04-05 13:50] LABS: CALCIUM 9.4 mg/dL (8.5-10.3); CREATININE 0.9 mg/dL (0.6-1.2); POTASSIUM 3.7 mmol/L (3.5-5.0)
[2021-04-05] MEDS ORDERED: ONDANSETRON ODT 4 MG TABLET TL STA (14:45)
[2021-04-05] MEDS ORDERED: MECLIZINE 12.5 MG TABLET PO STA (14:45)
--- NOTE | 2021-04-05 15:15 | MRI Report ---
PROCEDURE: Brain W/O INDICATIONS: vertigo TECHNIQUE: Noncontrast axial T1 spin echo, axial T2 fast spin echo, sagittal and axial FLAIR, coronal T2 fast sp in echo, axial gradient echo, axial diffusion and ADC through the brain. COMPARISON: 10/25/2020 CT examination FINDINGS: Image quality: Excellent. CSF Spaces: Basal cisterns are patent. No extra-axial fluid collections. Ventricles are normal in size and shape. Brain: No intracranial masses or hemorrhage. There is mild diffuse cerebral volume loss. Mild degree of patchy high FLAIR signal within the periventricular and subcortical white matter. Berkowitz/white mat ter interface is normal. Brainstem appears normal. Diffusion-weighted images demonstrate no acute i schemic insult. No chronic ischemic insults. Normal intravascular flow voids are present. Skull and face: Calvarium has normal marrow signal. Orbits appear normal. Sinuses: Sinuses and mastoids are clear. IMPRESSION: 1. No acute process. 2. Volume loss and small vessel ischemic disease. Reviewed by: Ky Barrios MD on 04/05/2021 3:13 PM PDT Approved by: Ky Barrios MD on 04/05/2021 3:13 PM PDT Station ID: [id number]
[2021-04-05] MEDS ORDERED: METOCLOPRAMIDE 10 MG/2 ML VIAL IVP STA (16:11)
[2021-04-05 17:14] VITALS: BP 136/78
== END 2021-04-05 17:14 | disposition home or self-care (01) ==
LOC: ED 12:56
DX: R42 Dizziness and giddiness (principal); I10 Essential (primary) hypertension; Z95.5 Presence of coronary angioplasty implant and graft
CPT/HCPCS: 36415; 70551; 80048; 85025; 96374; 99284; A9270; J2765; Q0162

== ENCOUNTER 2021-10-01 09:29 | Outpatient (CLI) | payer MEDICARE, OTHER ==
[2021-10-01 12:48] LABS: CHOL/HDL RATIO 1.8 (<5.0); CHOLESTEROL 145 mg/dL; HDL CHOLESTEROL 81 mg/dL; LDL CHOLESTEROL,CALCULATED 54 mg/dL; LDL/HDL RATIO 0.7 (<3.6); TRIGLYCERIDES 48 mg/dL; VLDL CHOLESTEROL 10 mg/dL
== END 2021-10-01 09:30 | disposition home or self-care (01) ==
LOC: LAB.N 09:29
PROVIDERS: ATTEND Physician Assistant
DX: I25.10 Atherosclerotic heart disease of native coronary artery without angina pectoris (principal)
CPT/HCPCS: 36415; 80061; 83721

== ENCOUNTER 2021-10-01 09:34 | Outpatient (CLI) | payer MEDICARE, OTHER ==
--- NOTE | 2021-10-01 12:21 | XRAY Report ---
PROCEDURE: Knee 3 View RT INDICATIONS: R KNEE PX TECHNIQUE: 3 views of the right knee(s) were acquired. COMPARISON: None. FINDINGS: Bones: No fractures or dislocations. No suspicious bony lesions. Moderate medial patellofemoral as well as minimal to mild lateral compartment narrowing. Patellar spur is noted. Soft tissues: No joint effusion. No suspicious soft tissue calcifications. IMPRESSION: Tricompartmental arthritic changes above. Reviewed by: Rayna Capone MD on 10/01/2021 12:19 PM PDT Approved by: Rayna Capone MD on 10/01/2021 12:19 PM PDT Station ID: [id number]
== END 2021-10-01 09:35 | disposition home or self-care (01) ==
LOC: DI.N 09:34
PROVIDERS: ATTEND Physician Assistant
DX: M17.11 Unilateral primary osteoarthritis, right knee (principal); I25.10 Atherosclerotic heart disease of native coronary artery without angina pectoris
CPT/HCPCS: 36415; 80061; 83721

== ENCOUNTER 2023-03-08 09:38 | Outpatient (CLI) | payer MEDICARE, OTHER | END 2023-03-08 09:39 | disposition home or self-care (01) | LOC: LAB.N 09:38 | PROVIDERS: ATTEND Physician Assistant | DX: Z12.5 Encounter for screening for malignant neoplasm of prostate (principal) | CPT/HCPCS: 36415; G0103; 84153 ==

== ENCOUNTER 2023-04-22 11:29 | Outpatient (CLI) | payer MEDICARE, OTHER ==
[2023-04-22 18:09] LABS: PSA TOTAL 2.904 ng/mL (0.000-2.000)
== END 2023-04-22 11:30 | disposition home or self-care (01) ==
LOC: LAB.N 11:29
PROVIDERS: ATTEND Physician Assistant
DX: Z12.5 Encounter for screening for malignant neoplasm of prostate (principal)
CPT/HCPCS: 36415; 84153; 84154

== ENCOUNTER 2024-01-23 10:27 | Day surgery (SDC) | payer MEDICARE, OTHER ==
--- NOTE | 2024-01-23 11:02 | HISTORY & PHYSICAL EXAMINATION ---
Chief Complaint - Chief Complaint Chief Complaint: here for colonoscopy History of Present Illness - History Obtained From Records Reviewed: yes History obtained from: pt Exam Limitations: none - History of Present Illness HPI Comment/Other: history colon polyps 2016. no gi symptoms History - Past Medical History Cardiovascular: reports: Hypertension, High cholesterol, Coronary artery disease, [place], Atrial fibrillation, Arrhythmia Respiratory: reports: None Endocrine/Autoimmune: reports: None GI: reports: None : reports: None HEENT: reports: Other Psych: reports: None Musculoskeletal: reports: None Derm: reports: None MRSA Hx?: No - Past Surgical History General: reports: Colonoscopy, Other Cardiovascular: reports: Coronary stent, Angioplasty, Other HEENT: reports: Other Meds/Allgy - Home Medications Home Medications: Ambulatory Orders Medication Instructions Recorded Confirmed lisinopriL [Zestril] 2 tab PO HS 07/27/20 01/22/24 Acetaminophen [Tylenol] 975 mg PO Q6H PRN 08/03/20 01/22/24 Atorvastatin Calcium 40 mg PO HS 08/03/20 01/22/24 - Allergies Allergies/Adverse Reactions: Allergies Allergy/AdvReac Type Severity Reaction Status Date / Time No Known Drug Allergies Allergy Verified 01/22/24 13:14 Review of Systems - Other Findings Other Findings: hx mi. no recent heart problems. 10 pt ros as above otherwise unremarkable Exam - Vital Signs Reviewed Vital Signs: Yes Vital Signs: Vital Signs x48h Temp Pulse Resp BP Pulse Ox 01/23/24 10:49 36.1 C L 59 L 17 107/74 99 - Physical Exam General Appearance: positive: No acute distress, Alert Eyes Bilateral: positive: PERRL, EOMI ENT: positive: No signs of dehydration Neck: positive: No JVD, Trachea midline Respiratory: positive: No respiratory distress Cardiovascular: positive: Regular rate & rhythm Abdomen: positive: No distention Neurologic/Psychiatric: positive: Oriented x3 Conclusion/Plan - Problem List (1) Colon cancer screening Conclusion/Plan: plan colonoscopy. parq held and consent obtained
[2024-01-23] MEDS: LACTATED RINGERS 1,000 ML IV ONE (11:22)
--- NOTE | 2024-01-23 12:06 | ANESTHESIA ---
Pre-Anesthesia VS, & Labs - Diagnosis hx colon polyps - Procedure colonoscopy Vital Signs: Temp Pulse Resp BP Pulse Ox O2 Flow Rate 36.1 C L 59 L 17 107/74 99 01/23/24 10:49 01/23/24 10:49 01/23/24 10:49 01/23/24 10:49 01/23/24 10:49 Height: 5 ft 2 in Weight (kg): 45.4 kg Body Mass Index: 18.3 BMI Classification: Underweight - NPO >8 hours Last Fluid Intake: am prep - Lab Results Lab results reviewed: Yes Home Medications and Allergies lisinopriL [Zestril] 2 tab PO HS 07/27/20 Acetaminophen [Tylenol] 975 mg PO Q6H PRN 08/03/20 Atorvastatin Calcium 40 mg PO HS 08/03/20 Allergies/Adverse Reactions: Allergies Allergy/AdvReac Type Severity Reaction Status Date / Time No Known Drug Allergies Allergy Verified 01/22/24 13:14 Anes History & Medical History - Anesthetic History Anesthesia Complications: reports: No previous complications Family history of Anesthesia Complications: Denies Family history of Malignant Hyperthermia: Denies - Medical History Cardiovascular: reports: Hypertension, High cholesterol, Coronary artery disease, [place], Atrial fibrillation, Arrhythmia Pulmonary: reports: None Gastrointestinal: reports: None Urinary: reports: None Musculoskeletal: reports: None Endocrine/Autoimmune: reports: None Skin: reports: None Smoking Status: Never smoker - Surgical History General: reports: Colonoscopy, Other Eyes Ears Nose Throat (EENT): reports: Other Cardiothoracic: reports: Coronary stent, Angioplasty, Other Exam General: Alert, Oriented x3, Cooperative Dental: WNL Mouth Openin Fingerbreadth Neck Mobility: Reduced Mallampati classification: II Thyromental Distance: 4-6 cm Respiratory: Lungs clear, Normal breath sounds, No respiratory distress Cardiovascular: Regular rate (rosaura, hx 2 ablations for AF) Neurological: Normal speech Mental/Cognitive Status: Alert/Oriented X3 Cognitive Status: Within normal limits Plan Anesthesia Type: Total IV Consent for Procedure(s) Verified and Reviewed: Yes Code Status: Attempt Resuscitation ASA classification: 3-Severe systemic disease Is this case an emergency?: No
[2024-01-23] MEDS ORDERED: PROPOFOL 500 MG/50 ML 500 MG/50 ML VIAL ONE (12:41)
[2024-01-23] MEDS ORDERED: LIDOCAINE-MPF 2% 5 ML VIAL ONE (12:47)
[2024-01-23] MEDS ORDERED: GLYCOPYRROLATE 1 MG/5 ML VIAL ONE (13:02)
[2024-01-23] MEDS: LACTATED RINGERS 400 ML IV ONE (13:31)
[2024-01-23 13:53] VITALS: O2SAT 100
--- NOTE | 2024-01-23 13:59 | ANESTHESIA POST OP EVALUATION ---
Anesthesia Post Eval - Post Anesthesia Eval Vitals: Last Vital Signs Temp 36.1 C L 01/23/24 13:34 Pulse 57 L 01/23/24 13:44 Resp 20 01/23/24 13:44 BP 97/63 01/23/24 13:44 Pulse Ox 100 01/23/24 13:44 O2 Flow Rate CV Function Including HR & BP: Stable Pain Control: Satisfactory Nausea & Vomiting: Negative Mental Status: Baseline Respiratory Status: Airway Patent Hydration Status: Satisfactory Anesthesia Complications: None
[2024-01-23 14:14] VITALS: BP 104/74
== END 2024-01-23 10:28 | disposition home or self-care (01) ==
LOC: SDS 10:27
PROVIDERS: ATTEND Surgery
PROC: 0DBP8ZZ Excision of Rectum, Via Natural or Artificial Opening Endoscopic (ICD-10-PCS; 2024-01-23)
PROC: 0DBH8ZZ Excision of Cecum, Via Natural or Artificial Opening Endoscopic (ICD-10-PCS; 2024-01-23)
PROC: 0DBK8ZZ Excision of Ascending Colon, Via Natural or Artificial Opening Endoscopic (ICD-10-PCS; principal; 2024-01-23 11:30)
DX: Z12.11 Encounter for screening for malignant neoplasm of colon (principal); D12.8 Benign neoplasm of rectum; D12.2 Benign neoplasm of ascending colon; K63.5 Polyp of colon; R63.6 Underweight; Z68.1 Body mass index [BMI] 19.9 or less, adult; I48.91 Unspecified atrial fibrillation; I10 Essential (primary) hypertension; I25.2 Old myocardial infarction; I25.10 Atherosclerotic heart disease of native coronary artery without angina pectoris; Z95.5 Presence of coronary angioplasty implant and graft
CPT/HCPCS: 45380; J7120

== ENCOUNTER 2024-03-26 10:12 | Outpatient (CLI) | payer MEDICARE, OTHER ==
[2024-03-26 18:08] LABS: BASOPHILS % (AUTO) 1.1 %; EOSINOPHILS # (AUTO) 0.1 10^3/uL (0.0-0.7); HCT - HEMATOCRIT 42.5 % (42.0-52.0); HGB - HEMOGLOBIN 13.5 g/dL (14.0-18.0); LYMPHOCYTES % (AUTO) 28.8 %; MEAN CORPUSCULAR HGB CONC 31.8 g/dL (32.0-36.0); MEAN CORPUSCULAR VOLUME 97.5 fL (80.0-94.0); MEAN PLATELET VOLUME 10.6 fL (7.4-11.4); MONOCYTES # (AUTO) 0.4 10^3/uL (0.0-1.0); MONOCYTES % (AUTO) 11.9 %; NEUTROPHILS # (AUTO) 1.9 10^3/uL (1.5-6.6); NEUTROPHILS % (AUTO) 54.2 %; PLT - PLATELET COUNT 212 10^3/uL (130-450); RED BLOOD COUNT 4.36 10^6/uL (4.70-6.10); RED CELL DISTRIBUTION WIDTH 15.2 % (12.0-15.0); WHITE BLOOD COUNT 3.5 x10^3/uL (4.8-10.8)
[2024-03-26 18:58] LABS: ALBUMIN 4.3 g/dL (3.2-5.5); ALBUMIN/GLOBULIN RATIO 1.5 (1.0-2.2); ALKALINE PHOSPHATASE 38 IU/L (42-121); ALT ALANINE AMINOTRANSFERASE 20 IU/L (10-60); AST ASPARTATE AMINOTRANSFERASE 22 IU/L (10-42); BILIRUBIN,TOTAL 0.8 mg/dL (0.2-1.0); BUN - BLOOD UREA NITROGEN 23 mg/dL (6-20); CALCIUM 9.7 mg/dL (8.5-10.3); CARBON DIOXIDE - CO2 28 mmol/L (21-32); CHLORIDE 107 mmol/L (101-111); CHOL/HDL RATIO 1.9 (<5.0); CHOLESTEROL 132 mg/dL; CREATININE 1.2 mg/dL (0.6-1.3); GFR - MDRD 60 (>89); GLUCOSE 88 mg/dL (74-104); HDL CHOLESTEROL 69 mg/dL; LDL CHOLESTEROL,CALCULATED 54 mg/dL; LDL/HDL RATIO 0.8 (<3.6); POTASSIUM 3.9 mmol/L (3.5-4.5); SODIUM 141 mmol/L (135-145); TOTAL PROTEIN 7.1 g/dL (6.4-8.9); TRIGLYCERIDES 44 mg/dL; VLDL CHOLESTEROL 9 mg/dL
[2024-03-29 05:28] LABS: HCV AB Non Reactive (Non Reactive)
== END 2024-03-26 10:13 | disposition home or self-care (01) ==
LOC: LAB.N 10:12
PROVIDERS: ATTEND Physician Assistant
DX: I10 Essential (primary) hypertension (principal); I25.10 Atherosclerotic heart disease of native coronary artery without angina pectoris; Z12.5 Encounter for screening for malignant neoplasm of prostate; Z11.59 Encounter for screening for other viral diseases
CPT/HCPCS: 36415; 80053; 80061; 85025; 86803; G0103; 83721; 84153